=== PATIENT | female | born 1950 | race Caucasian/White ===

== ENCOUNTER 2020-06-06 13:36 | Outpatient (CLI) | payer MEDICARE, SELFPAY ==
--- NOTE | ~2020-06-06 | DEXA_ITS ---
Bone Density Report Name: Mary Agrawal Age: 69 Sex: Female Ethnicity: White Date of : 1950 Indication: osteopenia; height loss; prior fracture; cancer; Referring Provider: LIZZY, OSKAR Study: Bone densitometry was performed. Exam Date: June 06, 2020 Accession number: [id number] Bone Density: Region BMD T-score Z-score Classification AP Spine (L1-L4) 1.171 1.1 3.3 Normal Femoral Neck (Left) 0.659 -1.7 0.1 Osteopenia Total Hip (Left) 0.745 -1.6 -0.1 Osteopenia Total Hip Bilateral Avg 0.749 -1.6 -0.1 Osteopenia Femoral Neck (Right) 0.585 -2.4 -0.5 Osteopenia Total Hip (Right) 0.752 -1.6 0.0 Osteopenia World Health Organization criteria for BMD impression classify patients as: Normal (T-score at or above -1.0), Osteopenia (T-score between -1.0 and -2.5), or Osteoporosis (T-score at or below -2.5). 10-year Fracture Risk(1): Major Osteoporotic Fracture 19% Hip Fracture 4.8% Reported Risk Factors: [place] (), Neck BMD=0.585, BMI=20.9, previous fracture (1) FRAX(R) Version 3.08. Fracture probability calculated for an untreated patient. Fracture probability may be lower if the patient has received treatment. Previous Exams: Region Exam Age BMD T-score BMD Change BMD Change Date g/cm2 vs Baseline vs Previous AP Spine(L1-L4) 06/06/2020 69 1.171 1.1 0.034(3.0%)# 0.034(3.0%)* 04/30/2017 66 1.137 0.8 0.000(0.0%)# -0.024(-2.0%)# 05/18/2014 63 1.161 1.0 0.024(2.1%)# -0.047(-3.9%)# 04/16/2011 60 1.208 1.5 0.071(6.3%)* 0.071(6.3%)* 03/23/2009 58 1.137 0.8 Total Hip(Left) 06/06/2020 69 0.745 -1.6 -0.050(-6.3%)# -0.012(-1.5%) 04/30/2017 66 0.756 -1.5 -0.039(-4.9%)# -0.085(-10.1%) 05/18/2014 63 0.841 -0.8 0.047(5.9%)# 0.005(0.5%)# 04/16/2011 60 0.837 -0.9 0.042(5.3%)* 0.042(5.3%)* 03/23/2009 58 0.795 -1.2 Total Hip(Right) 06/06/2020 69 0.752 -1.6 0.029(4.0%)# -0.018(-2.3%) 04/30/2017 66 0.770 -1.4 0.046(6.4%)# -0.045(-5.6%)# 05/18/2014 63 0.815 -1.0 0.092(12.7%)# 0.046(6.0%)# 04/16/2011 60 0.769 -1.4 0.046(6.3%)* 0.046(6.3%)* 03/23/2009 58 0.723 -1.8 *Denotes significance at 95% confidence level, LSC for AP Spine = 0.022 g/cm2, LSC for Total Hip = 0.027 g/cm2 Clinical Information Provided by Patient: Has had a low trauma fracture Has used the following medications: Vitamin D, Calcium Has the following medical conditions: Cancer Patient maximum height was 64.5
--- NOTE | ~2020-06-06 | MM_ITS ---
EXAMINATION: MM screening amanda BI w jason HISTORY: Screening TECHNIQUE: Craniocaudal and mediolateral oblique 3-D tomosynthesis images were obtained and synthetic 2-D images were generated. CAD analysis was submitted and interpreted. COMPARISON: Comparison to multiple prior studies sequentially, with oldest reviewed study dated 12/2013. BREAST PARENCHYMAL COMPOSITION: The breasts are heterogenously dense, which may obscure small masses FINDINGS: There are changes of left breast lumpectomy. There is no evidence of suspicious mass, calci fication, or architectural distortion to suggest malignancy in either breast. There has been no suspi cious interval change. IMPRESSION: 1. No mammographic evidence of malignancy. 2. Recommend routine screening mammography in one year. BI-RADS Category 2: Benign finding(s). Reviewed, dictated and finalized at location A.
== END 2020-06-06 13:37 | disposition home or self-care (01) ==
PROVIDERS: PCP Family Medicine; Visit Provider Nurse Practitioner
DX: Z12.31 Encounter for screening mammogram for malignant neoplasm of breast (principal); M85.88 Other specified disorders of bone density and structure, other site; M85.852 Other specified disorders of bone density and structure, left thigh; M85.851 Other specified disorders of bone density and structure, right thigh
CPT/HCPCS: 77063; 77067; 77080

== ENCOUNTER 2020-11-20 03:51 | Outpatient (CLI) | payer MEDICARE, SELFPAY ==
[2020-11-20 16:31] LABS: SARS-CoV-2 RNA PCR Negative
== END 2020-11-20 03:52 | disposition home or self-care (01) ==
LOC: ANHCOVIDDT 03:52
PROVIDERS: PCP Family Medicine; Visit Provider Obstetrics & Gynecology Gynecology
DX: Z01.812 Encounter for preprocedural laboratory examination (principal); Z20.822 Contact with and (suspected) exposure to COVID-19
CPT/HCPCS: C9803; U0003; U0005

== ENCOUNTER 2020-11-23 01:22 | Day surgery (SDC) | payer MEDICARE, SELFPAY ==
[2020-11-16 15:19] VITALS: BMI 20.4
--- NOTE | 2020-11-22 13:39 | P.PNAN_ITS ---
Anes - Initial Pre Proc Eval Procedure: Operation Date: 11/23/20 11:00 Proposed Procedures p Hysteroscopy Dilation and Curettage - Gabi Pillai MD Date/Time: 11/22/20 13:39 Surgeon: Gabi Pillai MD Pre Op Diagnosis: post menopausal bleeding Patient Data Age: 70 Gender: F Height: 1.63 m Weight: 54 kg Allergies Allergy/AdvReac Type Severity Reaction Status Date / Time No Known Allergies Allergy Verified 11/23/20 09:13 Home Medications Medication Instructions Recorded Confirmed Type artificial tear(jedgu-tfw-jwf) 2 drp OPHTHALMIC (EYE) BID PRN 11/16/20 11/23/20 History [GenTeal Tears Moderate] cholecalciferol (vitamin D3) See Rx Instructions .ROUTE .COMPLEX 11/16/20 11/23/20 History gluc mlrd-lyfqzxoljtyq-yindyco 1 ea MUCOUS MEMBRANE PRN PRN 11/16/20 11/23/20 History [Biotene] multivitamin [Multi-Vitamin] 1 tablet PO DAILY 11/16/20 11/23/20 History saliva stimulant comb. no.7 1 ea PRN PRN 11/16/20 11/23/20 History [Biotene Oralbalance (glycerin)] Patient hx anesthesia problems: none Family hx anesthesia problems: none PMFSH Past Medical History Medical History (Updated 11/22/20 @ 13:40 by Jarred Barnes MD) Adenocarcinoma of rectosigmoid junction MGUS (monoclonal gammopathy of unknown significance) Non-Hodgkin's lymphoma Personal history of malignant neoplasm of breast Renal cell carcinoma of right kidney Sicca syndrome, unspecified Surgical History Surgical History (Updated 11/21/20 @ 10:39 by Efraín Mijares MD) Status post colostomy Status post laparoscopic-assisted sigmoidectomy Social History Social History (Updated 11/21/20 @ 09:54 by Marcela Shaw) Smoking status: Never smoker Second hand tobacco smoke exposure: No Alcohol intake: never Substance use: never Substance use type: does not use Living arrangements: with family Gender identity (if verbalized by the patient): Female Spiritual care concerns: No Anes - Eval Final PreProcedure Day of Procedure 11/22/20 13:39 Patient weight: normal Heart: regular rate and rhythm Lungs: clear to auscultation and normal air movement Airway: Mallampati scale class II Neurological: alert and oriented Last oral intake: >/= 8 hours ASA classification: III Emergent: no Anesthetic plan: proceed Anesthesia type and monitoring: general GIVS and LMA Informed Consent: The patient's anesthetic plan and its attendant risks and rosa efits were discussed with the patient/family/POA. Questions were solicited and answers provided to the satisfaction of the patient/family/POA.
[2020-11-23] MEDS: ACETAMINOPHEN 500 MG TABLET 1000 MG PO (09:20)
[2020-11-23 09:23] VITALS: BP 150/53; PULSE 85; RESP 18; TEMP 36.8; O2SAT 100; BMI 20.1
[2020-11-23] MEDS: LACTATED RINGERS 1,000 ML 30 ML IV CONT (09:33)
--- NOTE | 2020-11-23 10:56 | PM.HPGS ---
History of Present Illness History of Present Illness Consent: Risks, benefits, and alternatives have been discussed and questions answered. Patient agrees to proceed with procedure. Chief complaint: post menopausal bleeding Narrative: Mary Agrawal is a 70 year old female with postmenopausal bleeding. Options reviewed and plan to proceed with hysteroscopy and D&C. Risks of infection, bleeding, and perforation discussed. Possible pathology reviewed. Agrees to proceed. [facility] Past Medical History Medical History (Updated 11/23/20 @ 11:00 by Gabi Pillai MD) Adenocarcinoma of rectosigmoid junction MGUS (monoclonal gammopathy of unknown significance) Non-Hodgkin's lymphoma Personal history of malignant neoplasm of breast Renal cell carcinoma of right kidney S/p nephrectomy Sicca syndrome, unspecified Surgical History Surgical History (Updated 11/23/20 @ 10:58 by Gabi Pillai MD) S/P breast lumpectomy S/P laparoscopic cholecystectomy Status post colostomy Status post laparoscopic-assisted sigmoidectomy Social History Social History (Updated 11/21/20 @ 09:54 by Marcela Shaw) Smoking status: Never smoker Second hand tobacco smoke exposure: No Alcohol intake: never Substance use: never Substance use type: does not use Living arrangements: with family Gender identity (if verbalized by the patient): Female Spiritual care concerns: No Meds Home Medications and Allergies Home Medications Medication Instructions Recorded Confirmed Type artificial tear(rkvul-vvb-djz) 2 drp OPHTHALMIC (EYE) BID PRN 11/16/20 11/23/20 History [GenTeal Tears Moderate] cholecalciferol (vitamin D3) See Rx Instructions .ROUTE .COMPLEX 11/16/20 11/23/20 History gluc txjt-xgcsxuochyap-echfmyf 1 ea MUCOUS MEMBRANE PRN PRN 11/16/20 11/23/20 History [Biotene] multivitamin [Multi-Vitamin] 1 tablet PO DAILY 11/16/20 11/23/20 History saliva stimulant comb. no.7 1 ea PRN PRN 11/16/20 11/23/20 History [Biotene Oralbalance (glycerin)] Allergies Allergy/AdvReac Type Severity Reaction Status Date / Time No Known Allergies Allergy Verified 11/23/20 09:13 Vital Signs Vital Signs - 24 hr 11/23/20 09:23 Temperature 98.3 F Pulse Rate 85 Respiratory Rate 18 Blood Pressure 150/53 H Pulse Oximetry 100 Exam Const: General: healthy appearing and alert Orientation/consciousness: patient oriented x3 Resp: Effort & Inspection: normal respiratory effort Auscultation: clear to auscultation bilaterally Cardio: Rate: regular rate Rhythm: regular rhythm GI: Inspection: other (ostomy bag LLQ) GI Palp: No Tenderness to palpation present (GI) and No Palpable mass present : External Female Exam: normal external appearance Speculum Exam - Vagina: vagina atrophic Speculum Exam - Cervix: normal appearance of the cervix Bimanual exam- vagina & uterus: uterine size normal and consistency normal Bimanual Exam- Adnexa, other: normal adnexae and No adnexal tenderness Neuro: General: patient oriented x3 Assessment and Plan Assessment and plan (1) Post-menopausal bleeding: Code(s): N95.0 - Postmenopausal bleeding Status: Acute Assessment and Plan: proceed with hysteroscopy and D&C
--- NOTE | 2020-11-23 11:00 | WPDHPUPDATE1 ---
History and Physical Update Update Date/Time: 11/23/20 11:00 History and Physical has been reviewed, including an updated exam of the patient. There are NO changes in the patient's condition. Risks, benefits, and alternatives have been discussed and questions answered. Patient agrees to proceed with procedure.
[2020-11-23] MEDS: LIDOCAINE HCL 1% LOCAL INJ 20 ML VIAL 50 ML INFILTRATE (11:33)
--- NOTE | 2020-11-23 11:38 | P.OP_ITS ---
Procedure Note - Detailed Date of procedure: 11/23/20 Pre-op diagnosis: post menopausal bleeding Post-op diagnosis: same Procedure performed: D&C hysteroscopy Description of procedure: The patient was taken to the operating room and placed under anesthesia in the dorsal lithotomy position. She is prepped and draped in the usual sterile fashion. [place] speculum was placed in the vagina and the cervix grasped on the anterior lip with a tenaculum. The uterus is sounded to 6cm and noted to be retroverted. The cervix is serially dilated with [place]. Diagnostic hysteroscope was placed with no abnormalities noted. The hysteroscope was removed. Medium sharp curette is used to sharply curette the endometrium until a good uterine cry was noted in all areas. Minimal material is obtained consistent with the severe atrophy noted. All instruments are removed. The patient is awakened from anesthesia in stable condition. Sponge, instruments, and needle counts are correct per the OR staff. Anesthesia: MAC and local Surgeon: Gabi Pillai MD Estimated blood loss (mL): 5 Drains: No Packing: No Pathology: yes (endometrial curettings) Complications: No immediate complications Condition: stable Disposition: PACU Findings: uterus retroverted, 6 cm; grossly atrophic with no lesions
[2020-11-23 11:40] VITALS: BP 100/43; PULSE 66; RESP 16; O2SAT 100
[2020-11-23 12:10] VITALS: BP 135/51; PULSE 58; RESP 16
[2020-11-23 12:27] VITALS: BP 123/49; PULSE 55; RESP 16
== END 2020-11-23 12:29 | disposition home or self-care (01) ==
PROVIDERS: PCP Family Medicine; Visit Provider Obstetrics & Gynecology Gynecology
PROC: 0U5B8ZZ Destruction of Endometrium, Via Natural or Artificial Opening Endoscopic (ICD-10-PCS; CPT 58563; principal; 2020-11-23 11:00)
DX: N95.0 Postmenopausal bleeding (principal); N85.8 Other specified noninflammatory disorders of uterus; C85.90 Non-Hodgkin lymphoma, unspecified, unspecified site; M35.00 Sjogren syndrome, unspecified; D47.2 Monoclonal gammopathy; Z85.3 Personal history of malignant neoplasm of breast; Z85.038 Personal history of other malignant neoplasm of large intestine; Z90.49 Acquired absence of other specified parts of digestive tract
CPT/HCPCS: 58558; 88305; A9270; C9803; J1100; J2405; J2704; J3010; J7030; J7120; U0003; U0005

== ENCOUNTER 2021-06-11 14:41 | Outpatient (CLI) | payer MEDICARE, SELFPAY ==
--- NOTE | ~2021-06-11 | MM_ITS ---
EXAMINATION: MM screening amanda BI w jason HISTORY: Screening TECHNIQUE: Craniocaudal and mediolateral oblique 3-D tomosynthesis images were obtained and synthetic 2-D images were generated. CAD analysis was submitted and interpreted. COMPARISON: Comparison to multiple prior studies sequentially, with oldest reviewed study dated 06/2015. BREAST PARENCHYMAL COMPOSITION: There are scattered areas of fibroglandular density. FINDINGS: Stable architectural distortion in the left breast, consistent with previous lumpectomy. Th ere is no evidence of suspicious mass, calcification, or architectural distortion to suggest malignan cy in either breast. There has been no suspicious interval change. IMPRESSION: 1. No mammographic evidence of malignancy. 2. Recommend routine screening mammography in one year. BI-RADS Category 1: Negative Reviewed, dictated and finalized at location A.
== END 2021-06-11 14:42 | disposition home or self-care (01) ==
LOC: ANHIMG 14:42
PROVIDERS: PCP Family Medicine; Visit Provider Obstetrics & Gynecology Gynecology
DX: Z12.31 Encounter for screening mammogram for malignant neoplasm of breast (principal)
CPT/HCPCS: 77063; 77067

== ENCOUNTER → 2021-06-20 14:57 | Outpatient (CLI) | payer MEDICARE, SELFPAY ==
--- NOTE | ~2021-06-20 | XR_ITS ---
EXAMINATION: XR hip LT min 2V DATE: 06/20/2021 15:13 INDICATION: Left hip pain. TECHNIQUE: 2 views of left hip were obtained. COMPARISON: None. FINDINGS: There is lumbar dextroscoliosis and severe spondylosis. No fracture. Left hip joint space i s normal. IMPRESSION: 1. Normal left hip. Reviewed, dictated and finalized at location B. IMPRESSION: 1. Normal left hip.
== END ==
PROVIDERS: PCP Family Medicine; Visit Provider Nurse Practitioner Family
DX: M25.552 Pain in left hip (principal)
CPT/HCPCS: 73502

== ENCOUNTER 2022-08-12 09:50 | Outpatient (CLI) | payer MEDICARE, SELFPAY ==
--- NOTE | ~2022-08-12 | DEXA_ITS ---
Bone Density Report Name: CHEYENNE RUIZ Age: 72 Sex: Female Ethnicity: White Date of : 1950 Indication: osteopenia; height loss; cancer;postmenopausal Referring Provider: LIZZY, OSKAR Study: Bone densitometry was performed. Exam Date: August 12, 2022 Accession number: [id number] Bone Density: Region BMD T-score Z-score Classification AP Spine(L1-L4) 1.155 1.0 3.3 Normal Femoral Neck (Left) 0.685 -1.5 0.5 Osteopenia Total Hip (Left) 0.728 -1.8 -0.1 Osteopenia Femoral Neck (Right) 0.637 -1.9 0.1 Osteopenia Total Hip (Right) 0.717 -1.8 -0.2 Osteopenia Total Hip Mean 0.723 -1.8 -0.2 Osteopenia World Health Organization criteria for BMD impression classify patients as: Normal (T-score at or above -1.0), Osteopenia (T-score between -1.0 and -2.5), or Osteoporosis (T-score at or below -2.5). 10-year Fracture Risk(1): Major Osteoporotic Fracture 10% Hip Fracture 2.3% Reported Risk Factors: [place] (), Neck BMD=0.637, BMI=20.6 (1) FRAX(R) Version 3.08. Fracture probability calculated for an untreated patient. Fracture probability may be lower if the patient has received treatment. Previous Exams: Region Exam Age BMD T-score BMD Change BMD Change Date g/cm2 vs Baseline vs Previous AP Spine (L1-L4) 08/12/2022 72 1.155 1.0 -0.006 (-0.5%) -0.016 (-1.4%) 06/06/2020 69 1.171 1.1 0.010 (0.9%)# 0.034 (3.0%)* 04/30/2017 66 1.137 0.8 -0.024 (-2.0%) -0.024 (-2.0%) 05/18/2014 63 1.161 1.0 Total Hip(Left) 08/12/2022 72 0.728 -1.8 -0.113 (-13.4% -0.016 (-2.2%) 06/06/2020 69 0.745 -1.6 -0.097 (-11.5% -0.012 (-1.5%) 04/30/2017 66 0.756 -1.5 -0.085 (-10.1% -0.085 (-10.1% 05/18/2014 63 0.841 -0.8 Total Hip(Right) 08/12/2022 72 0.717 -1.8 -0.098 (-12.0% -0.035 (-4.6%) 06/06/2020 69 0.752 -1.6 -0.063 (-7.7%) -0.018 (-2.3%) 04/30/2017 66 0.770 -1.4 -0.045 (-5.6%) -0.045 (-5.6%) 05/18/2014 63 0.815 -1.0 *Denotes significance at 95% confidence level, LSC for AP Spine = 0.022 g/cm2, LSC for Total Hip = 0.027 g/cm2 # Denotes dissimilar scan types or analysis methods Clinical Information Provided by Patient: Has used the following medications: Vitamin D Has the following medical conditions: Cancer Patient maximum height was 64.5 Menopause Age: 54 Drinks caffeinated beverages Onset of menses at age 14 Number of children 4 Impression: T
--- NOTE | ~2022-08-12 | MM_ITS ---
EXAMINATION: MM screening amanda BI w jason HISTORY: Screening TECHNIQUE: Craniocaudal and mediolateral oblique 3-D tomosynthesis images were obtained and synthetic 2-D images were generated. CAD analysis was submitted and interpreted. COMPARISON: Comparison to multiple prior studies sequentially, with oldest reviewed study dated 04/16. BREAST PARENCHYMAL COMPOSITION: The breasts are heterogeneously dense, which may obscure small masses FINDINGS: There is no evidence of suspicious mass, calcification, or architectural distortion to sugg est malignancy in either breast. There has been no suspicious interval change. IMPRESSION: 1. No mammographic evidence of malignancy. 2. Recommend routine screening mammography in one year. BI-RADS Category 2: Benign finding(s). Reviewed, dictated and finalized at location A.
== END 2022-08-12 09:51 | disposition home or self-care (01) ==
PROVIDERS: PCP Family Medicine; Visit Provider Nurse Practitioner
DX: Z12.31 Encounter for screening mammogram for malignant neoplasm of breast (principal); Z78.0 Asymptomatic menopausal state; M85.852 Other specified disorders of bone density and structure, left thigh; M85.851 Other specified disorders of bone density and structure, right thigh
CPT/HCPCS: 77063; 77067; 77080

== ENCOUNTER 2023-09-24 09:42 | Outpatient (CLI) | payer MEDICARE, SELFPAY ==
--- NOTE | ~2023-09-24 | MM_ITS ---
EXAMINATION: MM screening amanda BI w jason HISTORY: Screening mammogram TECHNIQUE: Craniocaudal and mediolateral oblique 3-D tomosynthesis images were obtained and synthetic 2-D images were generated. CAD analysis was submitted and interpreted. COMPARISON: 08/12/2022, 06/21/2021, 06/2020 bilateral screening mammogram examinations BREAST PARENCHYMAL COMPOSITION: There are scattered areas of fibroglandular density. FINDINGS: Status post left partial mastectomy. Benign calcifications are noted bilaterally. There is no evidence of suspicious mass, calcification, or interval architectural distortion to suggest malignancy in either breast. There has been no suspic ious interval change. IMPRESSION: 1. No mammographic evidence of malignancy. 2. Recommend routine screening mammography in one year. BI-RADS Category 2: Benign finding(s)... Reviewed, dictated and finalized at location A. 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
== END 2023-09-24 09:43 | disposition home or self-care (01) ==
LOC: ANHIMG 09:44
PROVIDERS: PCP Family Medicine; Visit Provider Advanced Practice Midwife
DX: Z12.31 Encounter for screening mammogram for malignant neoplasm of breast (principal)
CPT/HCPCS: 77063; 77067

== ENCOUNTER 2023-10-10 10:28 | Emergency (ER) | payer MEDICARE, SELFPAY ==
[2023-10-10 10:35] VITALS: BP 137/51; PULSE 82; RESP 16; TEMP 37.1; O2SAT 100
[2023-10-10 10:40] VITALS: BP 137/51; PULSE 82; RESP 16; TEMP 37.1; O2SAT 100
--- NOTE | 2023-10-10 10:51 | ED.URI ---
HPI - URI/Sore Throat General Chief Complaint: Upper Respiratory Infection Stated Complaint: Cough/Body Ache Time Seen by Provider: 10/10/23 10:52 Source: patient, RN notes reviewed and old records reviewed Mode of arrival: ambulatory Limitations: no limitations History of Present Illness HPI Narrative: 73 year old female presents to [facility] care with complaints of 2 week duration of cough which is dry, sinus congestion with drainage and raspy voice. Patient reports that she has also had a bad sore throat for the past 36 hours. Patient reports that she has used throat lozenges but has not taken any other medications for her symptoms. Patient reports that she has not had any fevers, chills or sweats,or any body aches. ., MD elicited complaint: cough, sore throat, rhinorrhea and nasal congestion Onset (ago): week(s) (2) Consistency: constant Pain scale (0-10): 5 Able to tolerate fluids by mouth: Yes Treatments prior to arrival: other (throat lozenges) Related Data Home Medications Medication Instructions Recorded Confirmed artificial 2 drp ophthalmic (eye) BID PRN Dry 11/16/20 11/27/22 tears(jwfzwtx-srawvsyl-woqcgpf) Eyes 0.1 %-0.3 %-0.2 % eye drops (GenTeal Tears Moderate) cholecalciferol (vitamin D3) 1,250 See Rx Instructions .Route .COMPLEX 11/16/20 11/27/22 mcg (50,000 unit) tablet gluc rjcs-scfykgvbccgu-oorfnsx 1 ea mucous membrane PRN PRN Dry 11/16/20 11/27/22 mouthwash Mouth multivitamin 1 tablet PO DAILY 11/16/20 11/27/22 saliva stimulant comb. no.7 1 ea PRN PRN Dry Mouth 11/16/20 11/27/22 (Biotene Oralbalance (glycerin) mucosal gel) Allergies Allergy/AdvReac Type Severity Reaction Status Date / Time No Known Allergies Allergy Verified 10/10/23 10:39 Review of Systems Review of Systems: CONSTITUTIONAL: Reports malaise, no chills, sweats, or fever. EYES: Denies visual changes, redness, or discharge. ENT: Reports rhinorrhea, congestion, sinus pain, right otalgia and sore throat. CARDIOVASCULAR: Denies chest pain, palpitations, or edema. RESPIRATORY: Reports dry cough.? Denies dyspnea. GASTROINTESTINAL: Denies abdominal pain, nausea, vomiting, diarrhea SKIN: Denies rash or itching. MUSCULOSKELETAL: Denies myalgia. NEUROLOGIC: Denies headache. 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 of unknown significance) Non-Hodgkin's lymphoma Personal history of malignant neoplasm of breast Renal cell carcinoma of right kidney S/p nephrectomy Sicca syndrome, unspecified Surgical History Surgical History S/P breast lumpectomy S/P laparoscopic cholecystectomy Status post colostomy Status post laparoscopic-assisted sigmoidectomy Family History Family History Mother Hypertension Heart disease Cerebrovascular accident Other Hypertension Social History Social History (Updated 10/11/23 @ 11:28 by Cecile West NP) Smoking status: Never smoker Second hand tobacco smoke exposure: No Alcohol intake: never Substance use: never Substance use type: does not use Living arrangements: with family Occupation/Education: retired Gender identity (if verbalized by the patient): Female Sexual Orientation (if Verbalized by the Patient): Straight or Heterosexual Spiritual care concerns: No Comments At time of signature, agree with nursing past medical, surgical, social and family history. There is no relevant family history pertinent to the presenting complaint Exam Narrative: GENERAL: Well-appearing, well-nourished, and in no acute distress. HEAD: Normocephalic EYES: PERRLA, conjunctivae clear ENT: Nares clear, turbinates edematous and erythemato
== END 2023-10-10 11:40 | disposition home or self-care (01) ==
PROVIDERS: Emergency Provider Registered Nurse; PCP Family Medicine
DX: J06.9 Acute upper respiratory infection, unspecified (principal); Z85.3 Personal history of malignant neoplasm of breast; Z85.72 Personal history of non-Hodgkin lymphomas; Z85.528 Personal history of other malignant neoplasm of kidney
CPT/HCPCS: 87081; 87880; 99213; G0463

== ENCOUNTER 2024-10-07 12:27 | Outpatient (CLI) | payer MEDICARE, SELFPAY ==
--- NOTE | ~2024-10-07 | XR_ITS ---
XR chest 2V 10/07/2024 12:52 Indication: Cough and shortness of breath Procedure: PA and lateral views of the chest Comparison: 08/04/2011 Findings: Cardiomegaly. There is pulmonary edema. Small pleural effusions. No pneumothorax. No acute osseous abnormality. There are changes of a left axillary lymph node dissection. Impression: 1: Cardiomegaly with pulmonary edema. Reviewed, dictated and finalized at location B. 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
[2024-10-07 12:51] LABS: Hematocrit 36.4 % (37.0-47.0); Hemoglobin 11.8 g/dL (12.0-15.0); Mean Corpuscular HGB Conc 32.4 g/dl (32-36); Mean Corpuscular Hemoglobin 32.4 pg (26-34); Mean Platelet Volume 10.2 fl (7.4-10.4); Platelet Count Result 116 k/mm3 (150-375); Red Blood Count 3.64 M/mm3 (4.2-5.4); Red Cell Distribution Width 15.2 % (11.5-14.5); White Blood Count 8.3 K/mm3 (4.5-10.0)
[2024-10-07 13:10] LABS: D Dimer 1.34 ug/mL (<0.48)
[2024-10-07 13:18] LABS: Alanine Aminotransferase 38 U/L (6-35); Albumin Level 3.8 g/dL (3.5-5.1); Alkaline Phosphatase 72 U/L (38-126); Anion Gap 6 mmol/L (4-12); Aspartate Amino Transferase 48 U/L (14-36); Bilirubin,Total 0.8 mg/dL (0.2-1.3); Blood Urea Nitrogen 23 mg/dL (7-17); Calcium 8.8 mg/dL (8.4-10.2); Carbon Dioxide 27 mmol/L (22-30); Chloride 105 mmol/L (98-107); Estimated Glomerular Filt Rate 40; Glucose 126 mg/dL (65-110); Potassium 3.7 mmol/L (3.4-5.0); Sodium 138 mmol/L (137-145)
[2024-10-07 13:28] LABS: Influenza A QL RT-PCR Negative (Negative); Influenza B QL RT-PCR Negative (Negative); RSV RNA, RT-PCR Negative (Negative); SARS-CoV-2 RNA PCR Negative (Negative)
== END 2024-10-07 12:28 | disposition home or self-care (01) ==
PROVIDERS: PCP Family Medicine; Visit Provider Physician Assistant Medical
DX: J06.9 Acute upper respiratory infection, unspecified (principal); R06.09 Other forms of dyspnea; R05.9 Cough, unspecified; R00.0 Tachycardia, unspecified; I51.7 Cardiomegaly
CPT/HCPCS: 36415; 71046; 80053; 85027; 85380; 87637